=== PATIENT | male | born 1980 | race Caucasian/White ===

== ENCOUNTER 2020-10-18 11:55 | Emergency (ER) | payer BC ==
[~2020-10-18] VITALS: Ht 172.7 cm; Wt 86.2 kg
[2020-10-18 11:55] VITALS: BP_SYST 141
[2020-10-18] MEDS ORDERED: DIPH-TET-PERTUS Vaccine 0.5 ML VIAL (ADACEL) I.M. ONE (12:15)
[2020-10-18] MEDS ORDERED: LIDOCAINE 1%, 20 ML MDV 20 ML ONE (12:23)
[2020-10-18 13:00] VITALS: BP_SYST 133
== END 2020-10-18 13:00 | disposition home or self-care (01) ==
LOC: SED 11:55
DX: S61.210A Laceration without foreign body of right index finger without damage to nail, initial encounter (principal); W26.8XXA Contact with other sharp object(s), not elsewhere classified, initial encounter; Y93.89 Activity, other specified; Y92.89 Other specified places as the place of occurrence of the external cause; Y99.8 Other external cause status
CPT/HCPCS: 12001; 90471; 90715; 99283; J2001

== ENCOUNTER 2020-10-30 09:27 | Emergency (ER) | payer BC ==
[~2020-10-30] VITALS: Ht 170.2 cm; Wt 78.0 kg
[2020-10-30 09:50] VITALS: BP_SYST 146
--- NOTE | 2020-10-30 09:50 | NUR ---
Patient to ER bed H1 to gown for evaluation. Side rails up.
--- NOTE | 2020-10-30 09:55 | NUR ---
Patient presented to ER for suture removal. Patient ambulatory to ER A&Ox4, afebrile, pain 2/10, denies N/V/D, skin pink and warm 3 sutures CDI. Patient states he had 3 sutures placed 12 days ago after cutting left index finger.
--- NOTE | 2020-10-30 10:08 | NUR ---
Dr Macias evaluating patient at bedside
[2020-10-30 10:28] VITALS: BP_SYST 144
--- NOTE | 2020-10-30 10:28 | NUR ---
Patient given written and verbal discharge instructions and verbalizes understanding. ER MD discussed with patient the results and treatment provided. Patient in stable condition. ID arm band removed. No Rx given. Patient educated on pain management and to follow up with PMD. Pain Scale 2/10. Opportunity for questions provided and answered. Medication side effect fact sheet provided.
[2020-10-30] MEDS ORDERED: KETOROLAC TROMETHAMINE 30 MG VIAL IM ONE (10:30)
== END 2020-10-30 10:28 | disposition home or self-care (01) ==
LOC: SED 09:27
DX: S61.219D Laceration without foreign body of unspecified finger without damage to nail, subsequent encounter (principal); X58.XXXD Exposure to other specified factors, subsequent encounter
CPT/HCPCS: 99281